=== PATIENT | male | born 1960 | race Asian ===

== ENCOUNTER 2018-11-24 01:59 | Inpatient (IN) | payer OTHER ==
[2018-11-24] MEDS ORDERED: ACETAMINOPHEN 325 MG TAB PO (03:30)
[2018-11-24] MEDS ORDERED: GLUCAGON 1 MG INJ IM (04:00)
[2018-11-24] MEDS ORDERED: GLUCOSE GEL 15 GRAM TUBE BUCCAL (04:00)
[2018-11-24] MEDS ORDERED: GLUCOSE GEL 15 GRAM TUBE PO ×2 (04:00)
[2018-11-24] MEDS ORDERED: DEXTROSE 50% 50 ML SYRINGE IV ×2 (04:00)
[2018-11-24] MEDS: FUROSEMIDE 40 MG INJ IV ×2 (06:37→17:25)
[2018-11-24] MEDS: INSULIN ASPART [NOVOLOG] 3 ML PEN SC ×4 (07:55→21:00)
[2018-11-24] MEDS: HEPARIN 5,000 UNIT/1 ML VIAL SC (08:12)
[2018-11-24] MEDS: LISINOPRIL 20 MG TAB PO (08:13)
[2018-11-24] MEDS: AMLODIPINE 10 MG TAB PO (08:13)
[2018-11-24 10:05] LABS: ADD MAN DIFF? NO
[2018-11-24 10:10] LABS: ABNORMAL IP MESSAGE 1; BASOPHILS % 0.9 % (0.0-2.0); EOSINOPHILS # 0.1 10^3/ul (0.0-0.5); EOSINOPHILS % 2.6 % (0.0-7.0); HEMATOCRIT 29.7 % (42.0-52.0); LYMPHOCYTES % 22.3 % (15.0-51.0); MEAN CORPUSCULAR HEMOGLOBIN 31.9 pg (29.0-33.0); MEAN CORPUSCULAR HGB CONC 33.7 g/dl (32.0-37.0); MEAN CORPUSCULAR VOLUME 94.9 fl (82.0-101.0); MONOCYTE # 0.6 10^3/ul (0.3-0.9); MONOCYTES % 13.1 % (0.0-11.0); NEUTROPHIL # 2.8 10^3/ul (1.6-7.5); NEUTROPHILS % 60.9 % (39.0-77.0); PLATELET COUNT 37 10^3/UL (140-415); POSITIVE DIFF @See below; RED BLOOD COUNT 3.13 10^6/ul (4.70-6.10); RED CELL DISTRIBUTION WIDTH 14.9 % (11.5-14.5)
[2018-11-24 10:10] LABS: WHITE BLOOD COUNT 4.6 10^3/ul (4.8-10.8)
[2018-11-24 10:12] LABS: PATH REVIEW? YES
[2018-11-24 10:27] LABS: INR 1.86; PROTIME 21.5 Sec (11.9-14.9); PT RATIO 1.7
[2018-11-24 10:58] LABS: ANISOCYTOSIS 1+ (0-0); BASOPHIL #M 0.1 10^3/ul (0.0-0.0); BASOPHILS % (M) 3 % (0-2); EOSINOPHILS % (M) 2 % (0-7); GIANT THROMBO% (M) 1 % (0-0); LYMPHOCYTES #M 0.7 10^3/ul (0.8-2.9); LYMPHOCYTES % (M) 17 % (15-51); MONOCYTE #M 0.1 10^3/ul (0.3-0.9); MONOCYTES % (M) 4 % (0-11); PLATELET ESTIMATE SIG DECREASED; POIKILOCYTOSIS 1+ (0-0); REACTIVE LYMPHOCYTES% (M) 2 % (0-0); SEGMENTED NEUTROPHILS (M) % 72 % (39-77); SMUDGE%M 14 % (0-0)
[2018-11-24 14:24] LABS: TYPE AND SCREEN 1 1
[2018-11-24 16:02] LABS: ALANINE AMINOTRANSFERASE 42 IU/L (13-69); ALBUMIN 2.6 g/dl (3.3-4.9); ALBUMIN/GLOBULIN RATIO 0.57; ALKALINE PHOSPHATASE 111 IU/L (42-121); ANION GAP 1 (5-13); ASPARTATE AMINO TRANSFERASE 61 IU/L (15-46); BILIRUBIN,INDIRECT 2.2 mg/dl (0-1.1); BILIRUBIN,TOTAL 2.2 mg/dl (0.2-1.3); BLOOD UREA NITROGEN 12 mg/dl (7-20); CALCIUM 8.4 mg/dl (8.4-10.2); CARBON DIOXIDE 30 mmol/L (21-31); CHLORIDE 105 mmol/L (97-110); CREATININE 0.92 mg/dl (0.61-1.24); Estimated GFR > 60 mL/min (>60); GLUCOSE 137 mg/dl (70-220); POTASSIUM 3.4 mmol/L (3.5-5.1); SODIUM 136 mmol/L (135-144); TOTAL PROTEIN 7.1 g/dl (6.1-8.1)
[2018-11-24] MEDS: POTASSIUM CHLORIDE (SR) 20 MEQ TAB PO (17:25)
[2018-11-25] MEDS: ACCU-CHEK XX (01:31)
[2018-11-25] MEDS: FUROSEMIDE 40 MG INJ IV ×2 (06:24→17:30)
[2018-11-25 07:10] LABS: ADD MAN DIFF? NO
[2018-11-25 07:22] LABS: ABNORMAL IP MESSAGE 1; EOSINOPHILS # 0.1 10^3/ul (0.0-0.5); EOSINOPHILS % 3.5 % (0.0-7.0); HEMATOCRIT 29.1 % (42.0-52.0); HEMOGLOBIN 9.9 g/dl (14.0-18.0); LYMPHOCYTES # 1.1 10^3/ul (0.8-2.9); LYMPHOCYTES % 26.8 % (15.0-51.0); MEAN CORPUSCULAR HEMOGLOBIN 31.6 pg (29.0-33.0); MEAN PLATELET VOLUME 11.8 fl (7.4-10.4); MONOCYTE # 0.5 10^3/ul (0.3-0.9); MONOCYTES % 11.7 % (0.0-11.0); NEUTROPHIL # 2.3 10^3/ul (1.6-7.5); NEUTROPHILS % 56.8 % (39.0-77.0); PLATELET COUNT 51 10^3/UL (140-415); POSITIVE DIFF @See below; RED BLOOD COUNT 3.13 10^6/ul (4.70-6.10); RED CELL DISTRIBUTION WIDTH 14.7 % (11.5-14.5)
[2018-11-25 07:32] LABS: HEMOGLOBIN A1C 5.2 % (0-5.9)
[2018-11-25 07:41] LABS: IRON 91 ug/dl (35-150)
[2018-11-25 07:42] LABS: INR 1.68; PROTIME 19.9 Sec (11.9-14.9); PT RATIO 1.6
[2018-11-25 07:43] LABS: PARTIAL THROMBOPLASTIN TIME 48.5 Sec (23.0-35.0)
[2018-11-25 07:44] LABS: ALANINE AMINOTRANSFERASE 38 IU/L (13-69); ALBUMIN 2.7 g/dl (3.3-4.9); ALKALINE PHOSPHATASE 104 IU/L (42-121); ANION GAP 3 (5-13); ASPARTATE AMINO TRANSFERASE 60 IU/L (15-46); BLOOD UREA NITROGEN 12 mg/dl (7-20); CALCIUM 8.8 mg/dl (8.4-10.2); CARBON DIOXIDE 30 mmol/L (21-31); CHLORIDE 106 mmol/L (97-110); Estimated GFR > 60 mL/min (>60); GLUCOSE 99 mg/dl (70-220); POTASSIUM 3.6 mmol/L (3.5-5.1); SODIUM 139 mmol/L (135-144); TOTAL PROTEIN 7.2 g/dl (6.1-8.1)
[2018-11-25 07:45] LABS: MAGNESIUM 1.4 mg/dl (1.7-2.5)
[2018-11-25 07:50] LABS: % IRON SATURATION 40 % SAT (22-52); TOTAL IRON BINDING CAPACITY 228 ug/dl (241-421)
[2018-11-25] MEDS: INSULIN ASPART [NOVOLOG] 3 ML PEN SC ×2 (07:55→11:50)
[2018-11-25] MEDS: LISINOPRIL 20 MG TAB PO (08:59)
[2018-11-25] MEDS: AMLODIPINE 10 MG TAB PO (08:59)
[2018-11-25] MEDS: MAGNESIUM SULFATE 2 GM/50 ML 50 ML IVPB (13:26)
[2018-11-25] MEDS: ERGOCALCIFEROL 50,000 UNIT CAP PO (14:41)
[2018-11-26] MEDS: FUROSEMIDE 40 MG INJ IV (06:54)
[2018-11-26 06:57] LABS: ADD MAN DIFF? NO
[2018-11-26 07:04] LABS: ABNORMAL IP MESSAGE 1; BASOPHIL # 0.1 10^3/ul (0.0-0.1); BASOPHILS % 1.3 % (0.0-2.0); EOSINOPHILS # 0.2 10^3/ul (0.0-0.5); EOSINOPHILS % 4.7 % (0.0-7.0); HEMATOCRIT 28.3 % (42.0-52.0); HEMOGLOBIN 9.6 g/dl (14.0-18.0); LYMPHOCYTES % 25.7 % (15.0-51.0); MEAN CORPUSCULAR HEMOGLOBIN 31.6 pg (29.0-33.0); MEAN CORPUSCULAR HGB CONC 33.9 g/dl (32.0-37.0); MEAN CORPUSCULAR VOLUME 93.1 fl (82.0-101.0); MEAN PLATELET VOLUME 11.3 fl (7.4-10.4); MONOCYTE # 0.4 10^3/ul (0.3-0.9); MONOCYTES % 11.3 % (0.0-11.0); NEUTROPHIL # 2.2 10^3/ul (1.6-7.5); NEUTROPHILS % 56.7 % (39.0-77.0); PLATELET COUNT 42 10^3/UL (140-415); POSITIVE DIFF @See below; RED BLOOD COUNT 3.04 10^6/ul (4.70-6.10); RED CELL DISTRIBUTION WIDTH 14.6 % (11.5-14.5)
[2018-11-26 07:04] LABS: WHITE BLOOD COUNT 3.8 10^3/ul (4.8-10.8)
[2018-11-26 07:23] LABS: ANION GAP 1 (5-13); BLOOD UREA NITROGEN 13 mg/dl (7-20); CALCIUM 8.4 mg/dl (8.4-10.2); CARBON DIOXIDE 30 mmol/L (21-31); CHLORIDE 106 mmol/L (97-110); CREATININE 0.76 mg/dl (0.61-1.24); Estimated GFR > 60 mL/min (>60); GLUCOSE 90 mg/dl (70-220); POTASSIUM 3.2 mmol/L (3.5-5.1); SODIUM 137 mmol/L (135-144)
[2018-11-26] MEDS: LISINOPRIL 20 MG TAB PO (09:07)
[2018-11-26] MEDS: AMLODIPINE 10 MG TAB PO (09:08)
[2018-11-26] MEDS: SPIRONOLACTONE 25 MG TAB PO (09:08)
[2018-11-26 12:14] LABS: B-TYPE NATRIURETIC PEPTIDE 41 PG/ML (0-125)
[2018-11-26] MEDS: POTASSIUM CHLORIDE 20 MEQ POWDER FOR ORAL SOLN PO (14:01)
[2018-11-26] MEDS: MAGNESIUM CHLORIDE (SR) 64 MG TAB PO (14:56)
[2018-11-27] MEDS ORDERED: metFORMIN 500 MG TAB PO (07:55)
== END 2018-11-26 16:29 | disposition home or self-care (01) | DRG 292 ==
LOC: TEL 01:59
PROVIDERS: Internal Medicine Nephrology
PROC: 30233R1 Transfusion of Nonautologous Platelets into Peripheral Vein, Percutaneous Approach (ICD-10-PCS; principal; 2018-11-24)
DX: I50.30 Unspecified diastolic (congestive) heart failure (principal); Z68.41 Body mass index [BMI] 40.0-44.9, adult; J90 Pleural effusion, not elsewhere classified; K74.60 Unspecified cirrhosis of liver; E66.01 Morbid (severe) obesity due to excess calories; E87.6 Hypokalemia; E88.09 Other disorders of plasma-protein metabolism, not elsewhere classified; D70.8 Other neutropenia; D69.6 Thrombocytopenia, unspecified; E11.40 Type 2 diabetes mellitus with diabetic neuropathy, unspecified; E11.319 Type 2 diabetes mellitus with unspecified diabetic retinopathy without macular edema; R31.9 Hematuria, unspecified; Z91.14 Patient's other noncompliance with medication regimen; R16.1 Splenomegaly, not elsewhere classified; D50.9 Iron deficiency anemia, unspecified
CPT/HCPCS: 36430; 71045; 76705; 80048; 80053; 82652; 82962; 83036; 83540; 83735; 83880; 84100; 85025; 85610; 85730; 86644; 86850; 86900; 86901; 86945; 93005; 93306

== ENCOUNTER 2018-12-03 10:19 | Inpatient (IN) | payer OTHER ==
[2018-12-03] MEDS ORDERED: FUROSEMIDE 40 MG TAB PO (12:30)
[2018-12-03] MEDS: AMLODIPINE 5 MG TAB PO (12:30)
[2018-12-03] MEDS: LISINOPRIL 20 MG TAB PO (12:30)
[2018-12-03] MEDS ORDERED: NITROGLYCERIN (SL) 0.4 MG TAB SL (14:00)
[2018-12-03] MEDS: SPIRONOLACTONE 25 MG TAB PO (14:31)
[2018-12-03] MEDS: FUROSEMIDE 40 MG INJ IV (14:32)
[2018-12-03] MEDS: CEFTRIAXONE 1 GM/50 ML (PMX) 50 ML IVPB (17:16)
[2018-12-03 17:37] LABS: ANION GAP 6 (5-13); BLOOD UREA NITROGEN 22 mg/dl (7-20); CALCIUM 9.2 mg/dl (8.4-10.2); CARBON DIOXIDE 26 mmol/L (21-31); CHLORIDE 100 mmol/L (97-110); CREATININE 1.26 mg/dl (0.61-1.24); Estimated GFR 58 mL/min (>60); GLUCOSE 160 mg/dl (70-220); POTASSIUM 4.8 mmol/L (3.5-5.1); SODIUM 132 mmol/L (135-144)
[2018-12-03 18:40] LABS: ADD UMIC YES; UR ASCORBIC ACID NEGATIVE (NEGATIVE); UR BACTERIA FEW /HPF (NONE SEEN); UR BILIRUBIN (Dip) NEGATIVE (NEGATIVE); UR BLOOD (Dip) 3+ mg/dL (NEGATIVE); UR CLARITY CLEAR (CLEAR); UR COLOR YELLOW (YELLOW); UR GLUCOSE (Dip) NEGATIVE (NEGATIVE); UR KETONES (Dip) NEGATIVE (NEGATIVE); UR LEUKOCYTE ESTERASE (Dip) NEGATIVE Leu/ul (NEGATIVE); UR NITRITE (Dip) NEGATIVE (NEGATIVE); UR RBC 41 /HPF (0-5); UR TOTAL PROTEIN (Dip) NEGATIVE (NEGATIVE); UR UROBILINOGEN (Dip) NEGATIVE (NEGATIVE); UR WBC 1 /HPF (0-5)
[2018-12-03 20:16] LABS: TROPONIN-I < 0.012 ng/ml (0.000-0.120)
[2018-12-03] MEDS: POTASSIUM CHLORIDE (SR) 8 MEQ CAP PO (20:43)
[2018-12-03] MEDS: ATORVASTATIN 20 MG TAB PO (20:43)
[2018-12-03] MEDS: ROPINIROLE 1 MG TAB PO (20:43)
[2018-12-03] MEDS ORDERED: MAGNESIUM CHLORIDE (SR) 64 MG TAB PO (21:00)
[2018-12-03] MEDS ORDERED: ACETAMINOPHEN 325 MG TAB PO (22:30)
[2018-12-03] MEDS: MAGNESIUM CHLORIDE (SR) 64 MG TAB PO (23:07)
[2018-12-03] MEDS: traMADol 50 MG TAB PO (23:07)
[2018-12-04 01:27] LABS: TROPONIN-I < 0.012 ng/ml (0.000-0.120)
[2018-12-04 06:17] LABS: ADD MAN DIFF? NO
[2018-12-04 06:24] LABS: ABNORMAL IP MESSAGE 1; BASOPHIL # 0.1 10^3/ul (0.0-0.1); EOSINOPHILS # 0.1 10^3/ul (0.0-0.5); HEMATOCRIT 28.3 % (42.0-52.0); HEMOGLOBIN 9.6 g/dl (14.0-18.0); LYMPHOCYTES # 0.8 10^3/ul (0.8-2.9); LYMPHOCYTES % 13.3 % (15.0-51.0); MEAN CORPUSCULAR HEMOGLOBIN 31.7 pg (29.0-33.0); MEAN CORPUSCULAR HGB CONC 33.9 g/dl (32.0-37.0); MEAN CORPUSCULAR VOLUME 93.4 fl (82.0-101.0); MEAN PLATELET VOLUME 13.4 fl (7.4-10.4); MONOCYTE # 0.7 10^3/ul (0.3-0.9); MONOCYTES % 12.4 % (0.0-11.0); NEUTROPHIL # 4.3 10^3/ul (1.6-7.5); PLATELET COUNT 36 10^3/UL (140-415); POSITIVE DIFF @See below; RED BLOOD COUNT 3.03 10^6/ul (4.70-6.10); RED CELL DISTRIBUTION WIDTH 14.6 % (11.5-14.5)
[2018-12-04 06:58] LABS: TROPONIN-I < 0.012 ng/ml (0.000-0.120)
[2018-12-04] MEDS: PANTOPRAZOLE (EC) 40 MG TAB PO (07:07)
[2018-12-04 07:10] LABS: ANION GAP 5 (5-13); BLOOD UREA NITROGEN 23 mg/dl (7-20); CARBON DIOXIDE 25 mmol/L (21-31); CHLORIDE 102 mmol/L (97-110); CREATININE 1.11 mg/dl (0.61-1.24); Estimated GFR > 60 mL/min (>60); GLUCOSE 102 mg/dl (70-220); POTASSIUM 4.7 mmol/L (3.5-5.1); SODIUM 132 mmol/L (135-144)
[2018-12-04 07:35] LABS: CHOLESTEROL 95 mg/dl (100-200)
[2018-12-04 07:35] LABS: CHOL/HDL RATIO 4.3 RATIO; HDL CHOLESTEROL 22 mg/dl (30-78); LDL CHOLESTEROL,CALCULATED 60 mg/dl; TRIGLYCERIDES 67 mg/dl (0-149)
[2018-12-04] MEDS: SPIRONOLACTONE 25 MG TAB PO (08:17)
[2018-12-04] MEDS: POTASSIUM CHLORIDE (SR) 20 MEQ TAB PO (08:17)
[2018-12-04] MEDS: ASPIRIN 81 MG TAB PO (08:17)
[2018-12-04] MEDS: LISINOPRIL 20 MG TAB PO (08:18)
[2018-12-04] MEDS: AMLODIPINE 5 MG TAB PO (08:18)
[2018-12-04] MEDS: MAGNESIUM CHLORIDE (SR) 64 MG TAB PO ×2 (08:18→21:26)
[2018-12-04] MEDS: FUROSEMIDE 40 MG INJ IV (08:19)
[2018-12-04] MEDS: REGADENOSON 0.4 MG/5 ML SYG (12:30)
[2018-12-04] MEDS: ERGOCALCIFEROL 50,000 UNIT CAP PO (13:57)
[2018-12-04] MEDS: CEFTRIAXONE 1 GM/50 ML (PMX) 50 ML IVPB (15:53)
[2018-12-04] MEDS ORDERED: LORAZEPAM 0.5 MG TAB PO (17:30)
[2018-12-04] MEDS: ATORVASTATIN 20 MG TAB PO (21:26)
[2018-12-04] MEDS: ROPINIROLE 1 MG TAB PO (21:26)
[2018-12-05] MEDS: PANTOPRAZOLE (EC) 40 MG TAB PO (06:13)
[2018-12-05 06:37] LABS: ADD MAN DIFF? NO
[2018-12-05 06:46] LABS: WHITE BLOOD COUNT 5.7 10^3/ul (4.8-10.8)
[2018-12-05 06:46] LABS: ABNORMAL IP MESSAGE 1; BASOPHIL # 0.1 10^3/ul (0.0-0.1); BASOPHILS % 1.4 % (0.0-2.0); EOSINOPHILS # 0.2 10^3/ul (0.0-0.5); EOSINOPHILS % 3.5 % (0.0-7.0); HEMATOCRIT 30.8 % (42.0-52.0); HEMOGLOBIN 10.4 g/dl (14.0-18.0); LYMPHOCYTES # 1.1 10^3/ul (0.8-2.9); MEAN CORPUSCULAR HEMOGLOBIN 31.8 pg (29.0-33.0); MEAN CORPUSCULAR HGB CONC 33.8 g/dl (32.0-37.0); MEAN CORPUSCULAR VOLUME 94.2 fl (82.0-101.0); MEAN PLATELET VOLUME 12.5 fl (7.4-10.4); MONOCYTE # 1.2 10^3/ul (0.3-0.9); MONOCYTES % 21.1 % (0.0-11.0); NEUTROPHILS % 53.5 % (39.0-77.0); PLATELET COUNT 49 10^3/UL (140-415); POSITIVE DIFF @See below; RED BLOOD COUNT 3.27 10^6/ul (4.70-6.10); RED CELL DISTRIBUTION WIDTH 14.3 % (11.5-14.5)
[2018-12-05 07:13] LABS: ANION GAP 4 (5-13); BLOOD UREA NITROGEN 19 mg/dl (7-20); CALCIUM 8.7 mg/dl (8.4-10.2); CARBON DIOXIDE 27 mmol/L (21-31); CHLORIDE 100 mmol/L (97-110); CREATININE 0.89 mg/dl (0.61-1.24); Estimated GFR > 60 mL/min (>60); GLUCOSE 133 mg/dl (70-220); POTASSIUM 4.6 mmol/L (3.5-5.1); SODIUM 131 mmol/L (135-144)
[2018-12-05 07:26] LABS: MAGNESIUM 1.5 mg/dl (1.7-2.5)
[2018-12-05 07:26] LABS: PHOSPHORUS 3.5 mg/dl (2.5-4.9)
[2018-12-05] MEDS: ASPIRIN 81 MG TAB PO (08:34)
[2018-12-05] MEDS: SPIRONOLACTONE 25 MG TAB PO (08:34)
[2018-12-05] MEDS: POTASSIUM CHLORIDE (SR) 20 MEQ TAB PO (08:34)
[2018-12-05] MEDS: FUROSEMIDE 40 MG INJ IV (08:35)
[2018-12-05] MEDS: LISINOPRIL 20 MG TAB PO (08:35)
[2018-12-05] MEDS: MAGNESIUM CHLORIDE (SR) 64 MG TAB PO (10:37)
[2018-12-05] MEDS: MAGNESIUM SULFATE 2 GM/50 ML 50 ML IVPB (12:16)
== END 2018-12-05 15:15 | disposition home or self-care (01) | DRG 880 ==
LOC: 6WM 10:19
DX: F41.9 Anxiety disorder, unspecified (principal); N17.9 Acute kidney failure, unspecified; I50.30 Unspecified diastolic (congestive) heart failure; Z68.41 Body mass index [BMI] 40.0-44.9, adult; R00.2 Palpitations; R07.9 Chest pain, unspecified; I11.0 Hypertensive heart disease with heart failure; D69.6 Thrombocytopenia, unspecified; E66.01 Morbid (severe) obesity due to excess calories; E87.5 Hyperkalemia; D64.9 Anemia, unspecified; E11.42 Type 2 diabetes mellitus with diabetic polyneuropathy; E11.319 Type 2 diabetes mellitus with unspecified diabetic retinopathy without macular edema; H54.62 Unqualified visual loss, left eye, normal vision right eye; K74.60 Unspecified cirrhosis of liver; D70.9 Neutropenia, unspecified
CPT/HCPCS: 71045; 78452; 80048; 80061; 81001; 83735; 84100; 84484; 85025; 87040-91; 93005; 93017